=== PATIENT | male | born 1965 | race Caucasian/White ===

== ENCOUNTER 2021-06-03 16:22 | Observation (INO) | payer OTHER ==
[~2021-06-03] VITALS: Ht 177.8 cm; Wt 97.5 kg
[2021-06-03 17:42] LABS: HEMOGLOBIN 14.4 gm/dl (14.0-17.5); RED BLOOD COUNT 4.8 M/UL (4.20-5.50); WHITE BLOOD COUNT 6.8 K/UL (4.5-11.0)
[2021-06-03 18:01] LABS: BUN/CREATININE RATIO 10 (0-10)
[2021-06-04] MEDS ORDERED: ASPIRIN EC81 MG PO (11:12)
[2021-06-04] MEDS ORDERED: COZAAR 50MG TAB50 MG PO (11:14)
[2021-06-04] MEDS ORDERED: CRESTOR5 MG PO (11:16)
[2021-06-04] MEDS ORDERED: LIPITOR TAB 2020 MG PO (11:21)
== END 2021-06-04 16:42 | disposition home or self-care (01) ==
LOC: ER1 16:22 → CDU 18:39
PROVIDERS: Physician Assistant Medical; ADMIT Internal Medicine
DX: I20.9 Angina pectoris, unspecified (principal); I10 Essential (primary) hypertension; M79.602 Pain in left arm; E78.5 Hyperlipidemia, unspecified; M54.2 Cervicalgia; R00.2 Palpitations; M53.80 Other specified dorsopathies, site unspecified; Z79.82 Long term (current) use of aspirin; Z90.49 Acquired absence of other specified parts of digestive tract; Z88.0 Allergy status to penicillin; Z82.49 Family history of ischemic heart disease and other diseases of the circulatory system; Z98.890 Other specified postprocedural states; Z20.822 Contact with and (suspected) exposure to COVID-19
CPT/HCPCS: 71045; 78452; 80053; 82550; 82553; 83874; 83880; 84484; 85025; 93005; 93017; A9502; G0378; U0002

== ENCOUNTER → 2021-07-04 | Outpatient (CLI) | payer OTHER ==
[~2021-07-04] MED LIST: ASPIRIN EC81 MG PO; COZAAR 50MG TAB50 MG PO; CRESTOR5 MG PO; LIPITOR TAB 2020 MG PO
== END ==
LOC: KOH-I 10:00
DX: R07.9 Chest pain, unspecified (principal)
CPT/HCPCS: 71250

== ENCOUNTER → 2021-12-13 | Outpatient (CLI) | payer OTHER ==
[2021-12-13 11:00] LABS: BUN/CREATININE RATIO 22 (0-10)
== END ==
LOC: LAB 09:45
PROVIDERS: Urology
DX: N40.1 Benign prostatic hyperplasia with lower urinary tract symptoms (principal)
CPT/HCPCS: 36415; 74018; 80053; 84153; 87086